=== PATIENT | female | born 1955 | race Caucasian/White ===

== ENCOUNTER → 2016-12-04 | Outpatient (CLI) | payer BC ==
[~2016-12-04] MED LIST: ALLEGRA PO; ALLEGRA-D 24 H1 EACH PO; ALLEGRA-D1 TAB.SR1 PO; AMARYL PO; ASPIRIN81 M2 PO; ATENOLOL PO; ATENOLOL50 MG PO; CALTRATE PLUS T1 TAB PO; CO Q-10200 MG PO; COMBIVENT RESPIM4 GM; FEVERALL650 MG/SUP PO; FISH OIL 1,0001 CAP PO; FISH OIL 1,0001 EAC1 PO; FISH OIL 1,001000 M1 PO; FLAX SEED OIL1000 MG PO; GLUCOTROL PO; HCTZ PO; HUMALOG100 UNIT/2 SUBQ; LIPITOR PO; METFORMIN HCL1000 M1 PO; PAXIL PO; PROAIR HFA8.5 GM IH; PROAIR HFA8.5 GM INH; SYMBICORT INH; TRESIBA FL100 UNIT/1 SUBQ
--- NOTE | ~2016-12-04 | EKG ---
PATIENT: MOSES WONG UNIT #: [id number] Ventricular Rate: 64 BPM Atrial Rate: 64 BPM P-R Interval: 174 ms QRS Duration: 84 ms Q-T Interval: 432 ms QTC Calculation(Bezet): 445 ms P [place]: 46 degrees Calculated R [place]: 49 degrees Calculated T [place]: 174 degrees Diagnosis Line: Normal sinus rhythm Diagnosis Line: ST and Marked T wave abnormality, consider Diagnosis Line: anterolateral ischemia Diagnosis Line: Abnormal ECG Diagnosis Line: When compared with ECG of 13-JUN-2015 06:14, Diagnosis Line: No significant change was found Diagnosis Line: Confirmed by DULCE MARIA DIETZ MD ([id number]) on 12/05/2016 Diagnosis Line: 7:35:31 PM INTERPRETING MD: J LUIS HATFIELD
[2016-12-04 12:07] LABS: BUN/CREATININE RATIO 18.88; CALCIUM SERUM 9.3 mg/dL (8.4-10.2); CREATININE SERUM 0.9 mg/dL (0.6-1.4); GLOM FILT RATE Estimated 68.6 mL/min (>60); POTASSIUM 4.5 mmol/L (3.5-5.1)
== END | disposition home or self-care (01) ==
LOC: CAMB 09:00
PROVIDERS: Surgery
DX: Z01.818 Encounter for other preprocedural examination (principal); L72.3 Sebaceous cyst
CPT/HCPCS: 36415; 80048; 93005

== ENCOUNTER → 2016-12-10 | Day surgery (SDC) | payer BC ==
--- NOTE | ~2016-12-10 | OR ---
Unit #: [id number] #: [id number] Patient: MOSES WONG [id number] [address] [address] [id number] O MR#: [id number] NAME: MOSES WONG. ROOM: Date of Procedure: 12/10/2016 Admission Date: 12/10/2016 Surgeon: Nii Kirkpatrick M.D. : 1955 Attending Physician: Nii Kirkpatrick M.D. Primary Care Physician: Carmen Robert A.P.R.N. PROCEDURE OPERATIVE NOTE PREOPERATIVE DIAGNOSIS 1. Chronically inflamed sebaceous cyst right axilla. 2. Multiple irritated skin tags right axilla. POSTOPERATIVE DIAGNOSIS 1. Chronically inflamed sebaceous cyst right axilla. 2. Multiple irritated skin tags right axilla. PROCEDURES PERFORMED 1. Excision of chronically inflamed sebaceous cyst right axilla, 3 cm with layer closure. 2. Excision of 15 irritated, inflamed skin tags right axilla. ANESTHESIA General LMA anesthesia with 0.5% Marcaine plain local anesthesia. FINDINGS The patient had the cyst excised in the right axilla with layered closure. The skin tags were excised with good hemostasis. SPECIMENS None. COMPLICATIONS None apparent. CONDITION The patient tolerated the procedure well. INDICATION FOR PROCEDURE The patient is a 61-year-old white female who has a chronically inflated sebaceous cyst of the right axilla as well as multiple skin tags. She presents at this time for excision of the cyst and skin tags. PROCEDURE After obtaining informed consent, as well as routine preoperative antibiotics, the patient was brought to the operating room and after adequate general LMA anesthesia was obtained had her right axilla prepped and draped in sterile fashion. An elliptical incision was made around the area of the chronically inflamed sebaceous cyst. It was taken down through skin with the knife and through the subdermal tissues and subcutaneous tissues with electrocautery with good hemostasis. The wound Unit #: [id number] #: [id number] Patient: MOSES WONG was irrigated and hemostasis achieved with the Bovie and infiltrated with 0.5% Marcaine plain local anesthesia. The deep tissue was reapproximated with interrupted 3-0 Vicryl suture and the skin was closed with a running 4-0 Vicryl subcuticular stitch. Then Steri-Strips were applied over the wound in an occlusive manner. At this point in time 15 skin tags in the surrounding area were excised sharply with the Tenotomy scissors and had the base fulgurated with electrocautery. A dry dressing was placed over the incision and Steri-Strips as well as Tegaderm. Band-aids were placed over the skin tag excision sites. Needle counts, sponge counts and instrument counts were all correct as reported by the scrub nurse times two. The patient was taken from the operating room in stable condition. Dictated by... Nii Kirkpatrick M.D. JPG/gz TD: 12/10/2016 11:07 JOB #: [id number] CC: [facility] Carmen Robert A.P.R.N. PROCEDURE OPERATIVE NOTE Page 1 of 1 X Nii Kirkpatrick MD X PROCEDURE OPERATIVE NOTE
== END | disposition home or self-care (01) ==
LOC: CSUR 06:45
DX: L72.0 Epidermal cyst (principal); L02.411 Cutaneous abscess of right axilla; F32.9 Major depressive disorder, single episode, unspecified; F41.9 Anxiety disorder, unspecified; E11.9 Type 2 diabetes mellitus without complications; I10 Essential (primary) hypertension; I25.10 Atherosclerotic heart disease of native coronary artery without angina pectoris; J45.909 Unspecified asthma, uncomplicated; E78.00 Pure hypercholesterolemia, unspecified; G47.30 Sleep apnea, unspecified; Z87.11 Personal history of peptic ulcer disease; Z87.891 Personal history of nicotine dependence; Z88.0 Allergy status to penicillin; Z88.1 Allergy status to other antibiotic agents; Z98.51 Tubal ligation status; Z95.818 Presence of other cardiac implants and grafts; Z98.890 Other specified postprocedural states; Z79.82 Long term (current) use of aspirin; Z79.4 Long term (current) use of insulin; Z79.84 Long term (current) use of oral hypoglycemic drugs; Z79.51 Long term (current) use of inhaled steroids; Z79.899 Other long term (current) drug therapy
CPT/HCPCS: 82947; 88304; J1815; J2250; J2405; J3010; J3370